=== PATIENT | female | born 1970 | race Caucasian/White ===

== ENCOUNTER → 2016-03-06 | Outpatient (CLI) | payer OTHER ==
[2016-03-06 10:54] LABS: MEAN CORPUSCULAR HEMOGLOBIN 28.7 pg (27.0-33.0); MEAN CORPUSCULAR HGB CONC 32.9 g/dl (32.0-36.5); MEAN CORPUSCULAR VOLUME 87.4 fl (80.0-96.0); RED CELL DISTRIBUTION WIDTH 13.5 % (11.5-14.5); RETIC HEMOGLOBIN CONTENT CHr 30.3 PG (24-36); RETICULOCYTE % ADVIA2120 1.7 % (0.5-1.5); WHITE BLOOD COUNT 8.2 K/mm3 (4.0-10.0)
[2016-03-06 11:27] LABS: ALBUMIN 3.7 GM/DL (3.2-5.2); ALBUMIN/GLOBULIN RATIO 1.06 (1.00-1.93); ALKALINE PHOSPHATASE 82 U/L (45-117); ALT/SGPT 34 U/L (12-78); ANION GAP 10 MEQ/L (8-16); AST/SGOT 20 U/L (15-37); BILIRUBIN,TOTAL 0.3 MG/DL (0.2-1.0); BLOOD UREA NITROGEN 12 MG/DL (7-18); CALCIUM LEVEL 8.6 MG/DL (8.5-10.1); CARBON DIOXIDE LEVEL 28 MEQ/L (21-32); CHLORIDE LEVEL 105 MEQ/L (98-107); CREATININE FOR GFR 0.77 MG/DL (0.55-1.02); GLOMERULAR FILTRATION RATE > 60.0 (>58); GLUCOSE, FASTING 108 MG/DL (70-105); POTASSIUM SERUM 4.2 MEQ/L (3.5-5.1); SODIUM LEVEL 143 MEQ/L (136-145); TOTAL PROTEIN 7.2 GM/DL (6.4-8.2)
--- NOTE | 2016-03-06 22:02 | REP ---
Clinical: Neck pain. Technique: AP, lateral, flexion/extension, open-mouth, bilateral oblique views. Findings: Alignment is maintained with mild reversal of normal lordosis. Moderate to advanced degenerative changes include anterior osteophytosis, endplate sclerosis and disc space narrowing primarily involving the C3-4 through C5-6 levels. No acute fracture / compression injury or subluxation. Open mouth view demonstrates normal C1-C2 articulation and odontoid process. Oblique views demonstrate patent neural foramen. Impression: Moderate to advanced focal degenerative changes involving C3-4, C4-5, C5-6. Signed by Bharat Otoole MD 03/06/2016 09:54 P
--- NOTE | 2016-03-06 22:03 | REP ---
Clinical: Pain . Technique: Internal rotation, external rotation, and Y view left shoulder Findings: No acute fracture or dislocation. The acromioclavicular and glenohumeral joints are intact. No periarticular calcifications or degenerative changes are appreciated. Sub acromial space is normal. Surrounding soft tissues are unremarkable. Impression: Age appropriate left shoulder radiographs. Signed by Bharat Otoole MD 03/06/2016 09:55 P
--- NOTE | 2016-03-06 22:04 | REP ---
Clinical: Shortness of breath . Comparison: 03/24/2013, 09/18/2013 . Technique: PA and lateral. Findings: The mediastinum and cardiac silhouette are normal. The lung butcher are clear and without acute consolidation, effusion, or pneumothorax. The skeletal structures are intact and normal. Impression: 1. No acute cardiopulmonary process. Signed by Bharat Otoole MD 03/06/2016 09:56 P
== END ==
LOC: M LAB 10:34
PROVIDERS: ATTEND Nurse Practitioner Family
DX: R06.02 Shortness of breath (principal); M25.519 Pain in unspecified shoulder; R53.81 Other malaise; E55.9 Vitamin D deficiency, unspecified; M12.832 Other specific arthropathies, not elsewhere classified, left wrist; R14.0 Abdominal distension (gaseous); M50.31 Other cervical disc degeneration, high cervical region; M50.322 Other cervical disc degeneration at C5-C6 level; M50.321 Other cervical disc degeneration at C4-C5 level

== ENCOUNTER → 2016-05-22 | Outpatient (CLI) | payer OTHER ==
--- NOTE | 2016-05-22 11:10 | REP ---
MAXILLOFACIAL CT WITHOUT CONTRAST: HISTORY: Chronic maxillary sinusitis. The left frontal sinus is hypoplastic. Minimal mucosal thickening is present in the maxillary sinuses. The remaining sinuses are clear. The ostiomeatal units are patent. The middle and inferior nasal turbinates are partially paradoxical. There is mild deviation of the nasal septum to the right. The nasal septum abuts the right middle nasal turbinate. The cribriform plate, medial lima of the orbits and optic canals are intact. The carotid canals form a segment of the posterolateral lima of the sphenoid sinus. IMPRESSION: Sinus mucosal thickening as described above. Signed by Jose Manuel Delgado MD 05/22/2016 11:18 A
== END ==
LOC: M RAD 09:39
PROVIDERS: ATTEND Otolaryngology
DX: J32.0 Chronic maxillary sinusitis (principal)

== ENCOUNTER → 2016-05-29 | Outpatient (CLI) | payer OTHER ==
[2016-05-29 12:18] LABS: BASO % 0.6 % (0.0-1.0); EOS # 0.2 K/mm3 (0.0-0.50); EOS % 2.3 % (0.0-3.0); LARGE UNSTAINED CELL # 0.2 K/mm3 (0.0-0.4); LARGE UNSTAINED CELL % 2.7 % (0.0-4.0); LYMPH # 2.6 K/mm3 (1.5-4.5); LYMPH % 28.9 % (24.0-44.0); MEAN CORPUSCULAR HEMOGLOBIN 28.9 pg (27.0-33.0); MEAN CORPUSCULAR HGB CONC 32.4 g/dl (32.0-36.5); MEAN CORPUSCULAR VOLUME 89.3 fl (80.0-96.0); MONO # 0.5 K/mm3 (0.0-0.8); MONO % 6.5 % (0.0-5.0); NEUTROPHILS # 4.9 K/mm3 (1.8-7.7); PLATELET COUNT, AUTOMATED 245 k/mm3 (150-450); RED CELL DISTRIBUTION WIDTH 13.6 % (11.5-14.5); WHITE BLOOD COUNT 8.3 K/mm3 (4.0-10.0)
--- NOTE | 2016-05-29 12:19 | REP ---
KUB, TWO VIEWS: HISTORY: Urinary history. Air is present in small and large intestine. There are no air fluid levels or dilated loops of intestine. There is no pneumoperitoneum. A mild amount of stool is present in the colon. IMPRESSION: Nonspecific bowel gas pattern. Signed by Jose Manuel Delgado MD 05/29/2016 12:21 P
[2016-05-29 12:55] LABS: ANION GAP 6 MEQ/L (8-16); BLOOD UREA NITROGEN 11 MG/DL (7-18); CALCIUM LEVEL 8.7 MG/DL (8.5-10.1); CARBON DIOXIDE LEVEL 30 MEQ/L (21-32); CHLORIDE LEVEL 107 MEQ/L (98-107); CREATININE FOR GFR 0.66 MG/DL (0.55-1.02); GLOMERULAR FILTRATION RATE > 60.0 (>58); GLUCOSE, FASTING 88 MG/DL (70-105); POTASSIUM SERUM 4.5 MEQ/L (3.5-5.1); SODIUM LEVEL 143 MEQ/L (136-145)
== END ==
LOC: M LAB 11:31
PROVIDERS: ATTEND Nurse Practitioner Family
DX: R35.0 Frequency of micturition (principal); K59.09 Other constipation; R31.29 Other microscopic hematuria; Z87.442 Personal history of urinary calculi

== ENCOUNTER 2016-08-11 09:39 | Emergency (ER) | payer OTHER ==
[~2016-08-11] VITALS: Ht 162.6 cm; Wt 86.2 kg
[2016-08-11] MEDS ORDERED: OMEP40CA2 PO (09:46)
[2016-08-11] MEDS ORDERED: LEVO150T7 PO (09:46)
[2016-08-11] MEDS ORDERED: ATOR1TAB21 PO (09:46)
[2016-08-11] MEDS ORDERED: CIPRODEX AS ×2 (10:46→10:50)
[2016-08-11 10:58] VITALS: BP 119/87
== END 2016-08-11 11:02 | disposition home or self-care (01) ==
LOC: M ED 10:10
DX: H60.92 Unspecified otitis externa, left ear (principal); E78.00 Pure hypercholesterolemia, unspecified; K21.9 Gastro-esophageal reflux disease without esophagitis; E03.9 Hypothyroidism, unspecified; Z79.899 Other long term (current) drug therapy; Z88.2 Allergy status to sulfonamides

== ENCOUNTER → 2016-09-09 | Outpatient (CLI) | payer OTHER ==
[~2016-09-09] MED LIST: ATOR1TAB21 PO; CIPRODEX AS; FLON1SPR; LEVO150T7 PO; OMEP40CA2 PO; VITA-112 PO
== END ==
LOC: M LAB 10:50
PROVIDERS: ATTEND Nurse Practitioner Family
DX: E78.5 Hyperlipidemia, unspecified (principal); E55.9 Vitamin D deficiency, unspecified

== ENCOUNTER → 2016-10-02 | Outpatient (CLI) | payer OTHER ==
[2016-10-02 10:18] LABS: MEAN CORPUSCULAR HEMOGLOBIN 29.4 pg (27.0-33.0); MEAN CORPUSCULAR HGB CONC 33.5 g/dl (32.0-36.5); MEAN CORPUSCULAR VOLUME 87.6 fl (80.0-96.0); RED CELL DISTRIBUTION WIDTH 13.7 % (11.5-14.5); WHITE BLOOD COUNT 8.8 K/mm3 (4.0-10.0)
[2016-10-02 10:55] LABS: FREE T4 1.18 NG/DL (0.76-1.46)
--- NOTE | 2016-10-03 01:35 | REP ---
Clinical: Hypothyroidism . Comparison: 03/06/2016 . Technique: PA and lateral. Findings: The mediastinum and cardiac silhouette are normal. The lung butcher are clear and without acute consolidation, effusion, or pneumothorax. The skeletal structures are intact and normal. Impression: 1. No acute cardiopulmonary process. Signed by Bharat Otoole MD 10/03/2016 01:26 A
--- NOTE | 2016-10-03 18:01 | ECGEPIP ---
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
== END ==
LOC: M LAB 09:47
PROVIDERS: ATTEND Nurse Practitioner Family
DX: R06.9 Unspecified abnormalities of breathing (principal)

== ENCOUNTER → 2016-10-08 | Outpatient (REF) | payer OTHER | LOC: M LAB REF 13:09 | PROVIDERS: ATTEND Nurse Practitioner Family | DX: Z12.4 Encounter for screening for malignant neoplasm of cervix (principal) ==

== ENCOUNTER 2016-10-10 13:25 | Outpatient (CLI) | payer OTHER ==
[~2016-10-10] VITALS: Ht 162.6 cm; Wt 83.9 kg
[2016-10-10] MEDS ORDERED: NS 1,000 ML IV ONE (13:30)
[2016-10-10] MEDS ORDERED: LIDOCAINE 2% INJ 100 MG/5 ML SDV (FOR ANES.) As Ordered ONE (17:02)
[2016-10-10] MEDS ORDERED: PROPOFOL 200 MG/20 ML VIAL As Ordered ONE (17:02)
--- NOTE | 2016-10-10 17:12 | ROOR ---
Patient Name: Enedina Hoyt Procedure Date: 10/10/2016 4:31 PM Date of : 1970 Age: 46 Room: [facility] Gender: Female Note Status: Finalized Procedure: Colonoscopy Indications: Change in bowel habits. Incomplete bowel movement, constipation. Providers: Shimon DURAN MD Referring MD: Claudette PRITCHARD NP Requesting Provider: Medicines: Monitored Anesthesia Care Complications: No immediate complications. Procedure: Pre-Anesthesia Assessment: - The heart rate, respiratory rate, oxygen saturations, blood pressure, adequacy of pulmonary ventilation, and response to care were monitored throughout the procedure. The Colonoscope was introduced through the anus and advanced to 4 cm into the ileum. The colonoscopy was performed without difficulty. The patient tolerated the procedure well. The quality of the bowel preparation was good. Findings: The perianal and digital rectal examinations were normal. A diminutive polyp was found in the splenic flexure. The polyp was sessile. The polyp was removed with a cold snare. Resection and retrieval were complete. A few small-mouthed diverticula were found in the sigmoid colon. Small Internal Hemorrhoids. The exam was otherwise without abnormality on direct and retroflexion views. Impression: - One diminutive polyp at the splenic flexure, removed with a cold snare. Resected and retrieved. - Minimal diverticulosis in the sigmoid colon. - Small Internal Hemorrhoids. - The examination was otherwise normal on direct and retroflexion views. Recommendation: - Miralax 1 capful (17 grams) in 8 ounces of water daily. - Telephone endoscopist for pathology results in 2 weeks. - If the pathology report reveals adenomatous tissue, then repeat the colonoscopy for surveillance in 5 years. Shimon Duran MD Shimon DURAN MD 10/10/2016 5:11:41 PM This report has been signed electronically. Number of Addenda: 0 Note Initiated On: 10/10/2016 4:31 PM Estimated Blood Loss: Estimated blood loss: none.
[2016-10-10 17:42] VITALS: BP 130/72
== END 2016-10-10 17:44 | disposition home or self-care (01) ==
LOC: M OPP 13:25
PROVIDERS: ATTEND Internal Medicine Gastroenterology
DX: R19.4 Change in bowel habit (principal); R15.0 Incomplete defecation; K59.00 Constipation, unspecified; D12.3 Benign neoplasm of transverse colon; K57.30 Diverticulosis of large intestine without perforation or abscess without bleeding; K64.8 Other hemorrhoids; R12 Heartburn; E03.9 Hypothyroidism, unspecified; E78.5 Hyperlipidemia, unspecified; F17.210 Nicotine dependence, cigarettes, uncomplicated; Z88.2 Allergy status to sulfonamides; Z79.899 Other long term (current) drug therapy; Z80.0 Family history of malignant neoplasm of digestive organs; Z80.43 Family history of malignant neoplasm of testis; Z80.1 Family history of malignant neoplasm of trachea, bronchus and lung

== ENCOUNTER → 2016-11-28 | Outpatient (REF) | payer OTHER, MEDICAID | LOC: M LAB REF 16:33 | PROVIDERS: ATTEND Nurse Practitioner Adult Health | DX: Z12.4 Encounter for screening for malignant neoplasm of cervix (principal); R35.0 Frequency of micturition ==

== ENCOUNTER → 2017-04-09 | Outpatient (CLI) | payer OTHER | LOC: M RAD 12:33 | DX: Z12.31 Encounter for screening mammogram for malignant neoplasm of breast (principal); Z92.29 Personal history of other drug therapy | CPT/HCPCS: 77067 ==

== ENCOUNTER → 2017-04-14 | Outpatient (CLI) | payer OTHER ==
[2017-04-14 09:24] LABS: BASO # 0.1 10^3/uL (0.0-0.2); BASO % 0.8 % (0.0-1.0); EOS # 0.2 10^3/uL (0.0-0.50); EOS % 2.3 % (0.0-3.0); HEMATOCRIT 43.8 % (36.0-47.0); HEMOGLOBIN 14.5 g/dl (12.0-16.0); IMMATURE GRANULOCYTE % 0.5 % (0-3.0); LYMPH # 2.6 10^3/uL (1.5-4.5); LYMPH % 30.4 % (24.0-44.0); MEAN CORPUSCULAR HEMOGLOBIN 28.5 pg (27.0-33.0); MEAN CORPUSCULAR HGB CONC 33.1 g/dl (32.0-36.5); MEAN CORPUSCULAR VOLUME 86.2 fl (80.0-96.0); MONO # 0.7 10^3/uL (0.0-0.8); MONO % 8.8 % (0.0-5.0); NEUTROPHILS # 4.8 10^3/uL (1.8-7.7); NEUTROPHILS % 57.2 % (36.0-66.0); PLATELET COUNT, AUTOMATED 246 10^3/uL (150-450); RED BLOOD COUNT 5.08 10^6/uL (4.00-5.40); RED CELL DISTRIBUTION WIDTH 15.2 % (11.5-14.5); WHITE BLOOD COUNT 8.4 10^3/uL (4.0-10.0)
[2017-04-14 09:46] LABS: ERYTHROCYTE SEDIMENTATION RATE 16 mm/hr (0-20)
[2017-04-14 09:56] LABS: ESTIMATED AVERAGE GLUCOSE 117 MG/DL (60-110); HEMOGLOBIN A1c 5.7 %
[2017-04-14 10:26] LABS: ALBUMIN 3.6 GM/DL (3.2-5.2); ALBUMIN/GLOBULIN RATIO 1.03 (1.00-1.93); ALKALINE PHOSPHATASE 77 U/L (45-117); ALT/SGPT 34 U/L (12-78); ANION GAP 7 MEQ/L (8-16); AST/SGOT 18 U/L (7-37); BILIRUBIN,TOTAL 0.3 MG/DL (0.2-1.0); BLOOD UREA NITROGEN 11 MG/DL (7-18); C REACTIVE PROTEIN QUANTITATIV 0.77 MG/DL (0.00-0.30); CALCIUM LEVEL 8.7 MG/DL (8.5-10.1); CARBON DIOXIDE LEVEL 27 MEQ/L (21-32); CHLORIDE LEVEL 108 MEQ/L (98-107); CHOLESTEROL LEVEL 213 MG/DL (<200); CREATININE FOR GFR 0.66 MG/DL (0.55-1.30); GLOMERULAR FILTRATION RATE > 60.0 (>58); GLUCOSE, FASTING 90 MG/DL (70-100); HDL CHOLESTEROL 46 MG/DL (>40); LDL CHOLESTEROL 144.6 MG/DL (<100); NON-HDL-C 167 MG/DL; POTASSIUM SERUM 4.3 MEQ/L (3.5-5.1); RHEUMATOID FACTOR QUANT < 10.0 IU/ML (0-15.0); SODIUM LEVEL 142 MEQ/L (136-145); THYROID STIMULATING HORMONE 0.457 uIU/ML (0.358-3.740); TOTAL PROTEIN 7.1 GM/DL (6.4-8.2); TRIGLYCERIDES LEVEL 112 MG/DL (<150)
[2017-04-14 10:38] LABS: TOTAL 25(OH) VITAMIN D 24.2 NG/ML (30.0-100.0)
[2017-04-16 00:06] LABS: ANTINUCLEAR ANTIBODIES DIRECT Negative (Negative)
[2017-04-16 00:06] LABS: CYCLIC CITRULLINATED PEPTIDE 4 units (0-19)
== END ==
LOC: M LAB 08:55
DX: M25.50 Pain in unspecified joint (principal)
CPT/HCPCS: 84443

== ENCOUNTER → 2017-10-23 | Outpatient (REF) | payer OTHER | LOC: M LAB REF 12:59 | DX: E03.9 Hypothyroidism, unspecified (principal) ==

== ENCOUNTER → 2018-04-27 | Outpatient (REF) | payer OTHER, MEDICAID ==
[2018-04-27 15:42] LABS: BASO # 0.1 10^3/uL (0.0-0.2); BASO % 0.6 % (0.0-1.0); EOS # 0.2 10^3/uL (0.0-0.50); EOS % 2.8 % (0.0-3.0); HEMOGLOBIN 15.3 g/dl (12.0-15.5); LYMPH # 2.4 10^3/uL (1.5-4.5); LYMPH % 30.5 % (24.0-44.0); MEAN CORPUSCULAR HEMOGLOBIN 28.8 pg (27.0-33.0); MEAN CORPUSCULAR HGB CONC 33.3 g/dl (32.0-36.5); MEAN CORPUSCULAR VOLUME 86.5 fl (80.0-96.0); MONO # 0.6 10^3/uL (0.0-0.8); MONO % 7.3 % (0.0-5.0); NEUTROPHILS # 4.7 10^3/uL (1.8-7.7); NEUTROPHILS % 58.5 % (36.0-66.0); PLATELET COUNT, AUTOMATED 297 10^3/uL (150-450); RED BLOOD COUNT 5.32 10^6/uL (4.00-5.40)
[2018-04-27 15:58] LABS: ALBUMIN 3.6 GM/DL (3.2-5.2); ALT/SGPT 33 U/L (12-78); BILIRUBIN,TOTAL 0.3 MG/DL (0.2-1.0); BLOOD UREA NITROGEN 11 MG/DL (7-18); CALCIUM LEVEL 8.6 MG/DL (8.5-10.1); CARBON DIOXIDE LEVEL 27 MEQ/L (21-32); CHLORIDE LEVEL 108 MEQ/L (98-107); CHOLESTEROL LEVEL 279 MG/DL (<200); CHOLESTEROL RISK RATIO 6.804 (<5); CREATININE FOR GFR 0.69 MG/DL (0.55-1.30); GLOMERULAR FILTRATION RATE > 60.0 (>58); GLUCOSE, FASTING 115 MG/DL (70-100); HDL CHOLESTEROL 41 MG/DL (>40); IRON (FE) 75 UG/DL (50-170); LDL CHOLESTEROL 192 MG/DL (<100); NON-HDL-C 238 MG/DL; SODIUM LEVEL 141 MEQ/L (136-145); THYROID STIMULATING HORMONE 0.647 uIU/ML (0.358-3.740); TOTAL 25(OH) VITAMIN D 27.7 NG/ML (30.0-100.0); TRIGLYCERIDES LEVEL 230 MG/DL (<150)
== END ==
LOC: M LAB REF 14:42
PROVIDERS: ATTEND Nurse Practitioner Adult Health
DX: Z13.9 Encounter for screening, unspecified (principal)

== ENCOUNTER 2018-07-11 08:55 | Emergency (ER) | payer MEDICAID, OTHER ==
[~2018-07-11] VITALS: Ht 162.6 cm; Wt 91.6 kg
[2018-07-11] MEDS ORDERED: ONDANSETRON 4 MG ORAL DISINTEGRATING TAB (Q0162 PER 1MG) PO ONE (09:30)
[2018-07-11 09:44] LABS: BASO # 0.1 10^3/uL (0.0-0.2); BASO % 0.7 % (0.0-1.0); EOS # 0.2 10^3/uL (0.0-0.50); EOS % 2.1 % (0.0-3.0); HEMATOCRIT 43.7 % (36.0-47.0); HEMOGLOBIN 14.2 g/dl (12.0-15.5); LYMPH # 2.2 10^3/uL (1.5-4.5); MEAN CORPUSCULAR HEMOGLOBIN 28.5 pg (27.0-33.0); MEAN CORPUSCULAR HGB CONC 32.5 g/dl (32.0-36.5); MEAN CORPUSCULAR VOLUME 87.8 fl (80.0-96.0); MONO # 0.8 10^3/uL (0.0-0.8); MONO % 9.5 % (0.0-5.0); NEUTROPHILS # 4.9 10^3/uL (1.8-7.7); NEUTROPHILS % 60.6 % (36.0-66.0); PLATELET COUNT, AUTOMATED 286 10^3/uL (150-450); RED BLOOD COUNT 4.98 10^6/uL (4.00-5.40)
[2018-07-11 09:50] VITALS: BP 144/83
--- NOTE | 2018-07-11 09:50 | REP ---
Head CT without contrast: History: Dizziness. Comparison study: No comparison. CT findings: Bone window settings demonstrate an intact bony calvarium. There is no evidence of skull fracture or incidental bony calvarial lesion. The visualized paranasal sinuses appear clear. No intraorbital abnormality is seen. On soft tissue window setting images; the lateral, third, and fourth ventricles are normal in size and position. Lackey-white differentiation pattern is normal above and below the tentorium. There are is no evidence of intracranial hemorrhage. No mass, edema, infarction, or midline shift is seen. No extra-axial fluid collection is appreciated. Impression: Negative noncontrast head CT. Electronically Signed by Bradley Joshua MD 07/11/2018 09:49 A
[2018-07-11 10:15] LABS: BLOOD UREA NITROGEN 11 MG/DL (7-18); CALCIUM LEVEL 8.5 MG/DL (8.5-10.1); CARBON DIOXIDE LEVEL 29 MEQ/L (21-32); CHLORIDE LEVEL 109 MEQ/L (98-107); CREATININE FOR GFR 0.65 MG/DL (0.55-1.30); GLOMERULAR FILTRATION RATE > 60.0 (>58); GLUCOSE, FASTING 98 MG/DL (70-100); POTASSIUM SERUM 4.2 MEQ/L (3.5-5.1); SODIUM LEVEL 143 MEQ/L (136-145); THYROID STIMULATING HORMONE 0.181 uIU/ML (0.358-3.740)
[2018-07-11] MEDS ORDERED: ONDA4TAB6 PO (10:47)
[2018-07-11] MEDS ORDERED: MECL-68 PO (10:47)
== END 2018-07-11 11:01 | disposition home or self-care (01) ==
LOC: M ED 08:55
DX: H65.05 Acute serous otitis media, recurrent, left ear (principal); H81.10 Benign paroxysmal vertigo, unspecified ear; K21.9 Gastro-esophageal reflux disease without esophagitis; E03.9 Hypothyroidism, unspecified; E78.00 Pure hypercholesterolemia, unspecified; F17.210 Nicotine dependence, cigarettes, uncomplicated; Z88.2 Allergy status to sulfonamides; Z79.899 Other long term (current) drug therapy
CPT/HCPCS: 36415; 70450; 80048; 84443; 85025; 99284; Q0162

== ENCOUNTER → 2018-12-15 | Outpatient (REF) | payer OTHER ==
[~2018-12-15] MED LIST changes: +MECL-68 PO; +ONDA4TAB6 PO
[2018-12-15 18:19] LABS: ALBUMIN 3.6 GM/DL (3.2-5.2); ALT/SGPT 36 U/L (12-78); BILIRUBIN,TOTAL 0.4 MG/DL (0.2-1.0); BLOOD UREA NITROGEN 8 MG/DL (7-18); CALCIUM LEVEL 9.2 MG/DL (8.5-10.1); CARBON DIOXIDE LEVEL 27 MEQ/L (21-32); CHLORIDE LEVEL 107 MEQ/L (98-107); CHOLESTEROL LEVEL 199 MG/DL (<200); CHOLESTEROL RISK RATIO 4.326 (<5); CREATININE FOR GFR 0.71 MG/DL (0.55-1.30); GLOMERULAR FILTRATION RATE > 60.0 (>58); GLUCOSE, FASTING 100 MG/DL (70-100); HDL CHOLESTEROL 46 MG/DL (>40); LDL CHOLESTEROL 119 MG/DL (<100); NON-HDL-C 153 MG/DL; POTASSIUM SERUM 4.2 MEQ/L (3.5-5.1); SODIUM LEVEL 140 MEQ/L (136-145); THYROID STIMULATING HORMONE 0.621 uIU/ML (0.358-3.740); TOTAL 25(OH) VITAMIN D 29.8 NG/ML (30.0-100.0); TRIGLYCERIDES LEVEL 172 MG/DL (<150)
[2018-12-15 18:23] LABS: HEMOGLOBIN A1c 5.9 %
== END ==
LOC: M LAB REF 16:54
PROVIDERS: ATTEND Nurse Practitioner Adult Health
DX: Z13.9 Encounter for screening, unspecified (principal)

== ENCOUNTER → 2018-12-22 | Outpatient (CLI) | payer OTHER ==
[~2018-12-22] MED LIST changes: -OMEP40CA2 PO; +OMEP40CA97 PO; +PROHANCE 279.3MG/ML 15ML VIAL (A9576) As Ordered ONE; +PROHANCE 279.3MG/ML 5ML VIAL (A9576) As Ordered ONE
--- NOTE | 2018-12-22 15:10 | REP ---
MRI brain/IACs: 12/22/2018. Indication: Center narrowing loss. Comparison: None. Technique: Multiplanar short and long TR sequences of the brain/IACs were performed including post-gadolinium images. 17 ml IV ProHance were administered. Findings: There are no areas of restricted diffusion. There is no evidence of mass effect or hydrocephalous. Partially empty sella is present. There are a few punctate foci of elevated T2 prolongation within the white matter of the cerebral hemispheres most pronounced within the right frontal lobe. The large intracranial flow voids are present and unremarkable. There are no areas of pathologic gadolinium enhancement. The membranous labyrinth are unremarkable. No cerebellopontine/medullary abnormalities are present. The IACs appear normal. Tiny right mastoid effusion is present. Impression: Unremarkable IACs. 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 Nonspecific partially empty sella. Electronically Signed by Danis Roblero DO 12/22/2018 03:02 P
== END ==
LOC: M RAD 13:06
PROVIDERS: ATTEND Otolaryngology
DX: H90.3 Sensorineural hearing loss, bilateral (principal)
CPT/HCPCS: 70553; A9576

== ENCOUNTER 2018-12-24 06:55 | Day surgery (SDC) | payer OTHER ==
[~2018-12-24] VITALS: Ht 162.6 cm; Wt 89.4 kg
[~2018-12-24 06:55] MED LIST changes: -PROHANCE 279.3MG/ML 15ML VIAL (A9576) As Ordered ONE; -PROHANCE 279.3MG/ML 5ML VIAL (A9576) As Ordered ONE
[2018-12-24] MEDS ORDERED: CIPRODEX OTIC SUSP 7.5ML As Ordered ONE (07:10)
[2018-12-24] MEDS ORDERED: dexameTHASONE 4 MG/ML 1ML VIAL (J1100) As Ordered ONE (08:29)
[2018-12-24] MEDS ORDERED: LIDOCAINE 2% INJ 100 MG/5 ML SDV (FOR ANES.) As Ordered ONE (08:29)
[2018-12-24] MEDS ORDERED: MIDAZOLAM INJ 2 MG/2 ML VIAL (J2250) As Ordered ONE (08:29)
[2018-12-24] MEDS ORDERED: fentaNYL 100 MCG/2 ML INJECTION (J3010) As Ordered ONE (08:29)
[2018-12-24] MEDS ORDERED: ONDANSETRON 4MG/2ML VIAL (J2405) As Ordered ONE (08:29)
[2018-12-24] MEDS ORDERED: PROPOFOL 200 MG/20 ML VIAL As Ordered ONE (08:29)
[2018-12-24] MEDS ORDERED: LR 1,000 ML IV SCH (08:45)
[2018-12-24] MEDS ORDERED: PERCOCET 5MG/325MG TAB PO PRN (08:45)
[2018-12-24] MEDS ORDERED: ONDANSETRON 4MG/2ML VIAL (J2405) IV PRN (08:45)
[2018-12-24] MEDS ORDERED: IBUPROFEN 600 MG TAB As Ordered ONE (08:49)
[2018-12-24] MEDS ORDERED: IBUPROFEN 600 MG TAB PO PRN (09:00)
[2018-12-24] MEDS ORDERED: IBUPROFEN 600 MG TAB PO ONE (09:00)
[2018-12-24 09:35] VITALS: BP 109/61
--- NOTE | 2018-12-29 15:25 | RO ---
DATE OF PROCEDURE: 12/24/2018 PREPROCEDURE DIAGNOSIS: Eustachian tube dysfunction. POSTPROCEDURE DIAGNOSIS: Eustachian tube dysfunction. PROCEDURE: Bilateral tympanostomy. SURGEON: Marv Alex MD [employer]KER: ANESTHESIA: General. INTRAOPERATIVE FINDINGS: Bilateral tympanosclerosis. CLINICAL PREAMBLE: This 48-year-old woman presented to the office with a history of chronic ear fullness. She was not responding to medical treatment, including nasal steroids. Physical examination revealed intact, retracted and sclerotic tympanic membranes. Management options, including bilateral tympanostomy have been discussed. The patient understood and consented to the procedure. DESCRIPTION OF PROCEDURE: Patient was identified in preholding and brought to the operating room in stable condition. In the supine position on the operating room table, the patient received general anesthesia followed by mask ventilation. The patient's head was turned to the left side to expose the right ear. Ear speculum was inserted and cerumen was debrided. The right tympanic membrane was visualized under binocular magnification under an operating microscope and was found to be intact and mildly retracted. Myringotomy incision was made over the anterior-inferior quadrant of tympanic membrane. The right middle ear cleft was then suctioned clear. A 7 mm straight shank tympanostomy tube was inserted. Ciprodex drops were instilled, and a cotton ball was used to occlude the ear canal. The same procedure was carried out to place the same type of tympanostomy tube to the left ear as well. At the end of the end of the procedure, sponge and needle counts were correct. No complications were encountered. Estimated blood loss was nil. General anesthesia was reversed, and patient was awakened and taken to recovery room in stable condition.
== END 2018-12-24 09:47 | disposition home or self-care (01) ==
LOC: M SDC 06:55
PROVIDERS: ATTEND Otolaryngology
DX: H69.93 Unspecified Eustachian tube disorder, bilateral (principal); H74.03 Tympanosclerosis, bilateral; E03.9 Hypothyroidism, unspecified; E78.5 Hyperlipidemia, unspecified; K21.9 Gastro-esophageal reflux disease without esophagitis; F17.218 Nicotine dependence, cigarettes, with other nicotine-induced disorders; Z88.2 Allergy status to sulfonamides
CPT/HCPCS: 69436; J1100; J2250; J2405; J3010

== ENCOUNTER → 2019-06-29 | Outpatient (REF) | payer SELFPAY ==
[~2019-06-29] MED LIST changes: -MECL-68 PO; +MECL1TAB31 PO
[2019-06-29 17:34] LABS: BASO # 0.1 10^3/uL (0.0-0.2); BASO % 0.7 % (0.0-1.0); EOS # 0.2 10^3/uL (0.0-0.5); EOS % 1.8 % (0.0-3.0); HEMOGLOBIN 15.1 g/dl (12.0-15.5); LYMPH % 23.9 % (24.0-44.0); MEAN CORPUSCULAR HEMOGLOBIN 28.7 pg (27.0-33.0); MEAN CORPUSCULAR HGB CONC 32.8 g/dl (32.0-36.5); MEAN CORPUSCULAR VOLUME 87.3 fl (80.0-96.0); MONO % 8.3 % (0.0-5.0); NEUTROPHILS # 8.1 10^3/uL (1.5-8.5); PLATELET COUNT, AUTOMATED 321 10^3/uL (150-450); RED BLOOD COUNT 5.27 10^6/uL (4.00-5.40); WHITE BLOOD COUNT 12.5 10^3/uL (4.0-10.0)
[2019-06-29 17:48] LABS: APPEARANCE, URINE CLEAR (CLEAR); BACTERIA, URINE AUTO NEGATIVE (NEGATIVE); BILIRUBIN, URINE AUTO NEGATIVE (NEGATIVE); BLOOD, URINE BLOOD 2+ (NEGATIVE); COLOR, URINE STRAW (YELLOW); GLUCOSE, URINE (UA) AUTO NEGATIVE (NEGATIVE); KETONE, URINE AUTO NEGATIVE (NEGATIVE); LEUKOCYTE ESTERASE, URINE AUTO 2+ (NEGATIVE); NITRITE, URINE AUTO NEGATIVE (NEGATIVE); PROTEIN, URINE AUTO NEGATIVE (NEGATIVE); RBC, URINE AUTO 17 /HPF (0-3); SQUAMOUS EPITHELIAL CELL UR AU 1 /HPF (0-6); UROBILINOGEN, URINE AUTO 0.2 mg/dL (0.0-2.0); WBC, URINE AUTO 65 /HPF (0-3)
[2019-06-29 18:03] LABS: ALBUMIN 3.4 GM/DL (3.2-5.2); ALT/SGPT 34 U/L (12-78); BILIRUBIN,TOTAL 0.2 MG/DL (0.2-1.0); BLOOD UREA NITROGEN 12 MG/DL (7-18); CALCIUM LEVEL 8.6 MG/DL (8.5-10.1); CARBON DIOXIDE LEVEL 27 MEQ/L (21-32); CHLORIDE LEVEL 108 MEQ/L (98-107); GLOMERULAR FILTRATION RATE > 60.0 (>58); GLUCOSE, FASTING 107 MG/DL (70-100); POTASSIUM SERUM 3.9 MEQ/L (3.5-5.1); SODIUM LEVEL 141 MEQ/L (136-145)
== END ==
LOC: M LAB REF 17:10
PROVIDERS: ATTEND Nurse Practitioner Family
DX: N39.0 Urinary tract infection, site not specified (principal); R30.0 Dysuria

== ENCOUNTER → 2020-03-08 | Outpatient (REF) | payer SELFPAY | LOC: M LAB REF 12:46 | PROVIDERS: ATTEND Physician Assistant | DX: R30.9 Painful micturition, unspecified (principal) ==

== ENCOUNTER → 2020-03-20 | Outpatient (REF) | payer OTHER ==
[~2020-03-20] MED LIST changes: +CIPR7.5D5 AS; -CIPRODEX AS
[2020-03-20 18:07] LABS: BASO # 0.1 10^3/uL (0.0-0.2); BASO % 0.7 % (0.0-1.0); EOS # 0.2 10^3/uL (0.0-0.5); HEMATOCRIT 47.1 % (36.0-47.0); LYMPH # 2.8 10^3/uL (1.5-5.0); LYMPH % 28.9 % (24.0-44.0); MEAN CORPUSCULAR HEMOGLOBIN 28.3 pg (27.0-33.0); MEAN CORPUSCULAR HGB CONC 31.8 g/dl (32.0-36.5); MEAN CORPUSCULAR VOLUME 88.9 fl (80.0-96.0); MONO # 0.7 10^3/uL (0.0-0.8); MONO % 7.5 % (0.0-5.0); NEUTROPHILS # 5.9 10^3/uL (1.5-8.5); NEUTROPHILS % 60.6 % (36.0-66.0); PLATELET COUNT, AUTOMATED 295 10^3/uL (150-450); WHITE BLOOD COUNT 9.8 10^3/uL (4.0-10.0)
[2020-03-20 18:21] LABS: HEMOGLOBIN A1c 5.6 %
[2020-03-20 18:44] LABS: ALBUMIN 3.6 GM/DL (3.2-5.2); ALT/SGPT 35 U/L (12-78); BILIRUBIN,TOTAL 0.3 MG/DL (0.2-1.0); BLOOD UREA NITROGEN 11 MG/DL (7-18); CALCIUM LEVEL 9.1 MG/DL (8.5-10.1); CARBON DIOXIDE LEVEL 29 MEQ/L (21-32); CHLORIDE LEVEL 107 MEQ/L (98-107); CHOLESTEROL LEVEL 215 MG/DL (<200); CHOLESTEROL RISK RATIO 4.673 (<5); CREATININE FOR GFR 0.72 MG/DL (0.55-1.30); FREE T4 1.29 NG/DL (0.76-1.46); GLOMERULAR FILTRATION RATE > 60.0 (>58); GLUCOSE, FASTING 90 MG/DL (70-100); HDL CHOLESTEROL 46 MG/DL (>40); LDL CHOLESTEROL 131 MG/DL (<100); NON-HDL-C 169 MG/DL; POTASSIUM SERUM 4.1 MEQ/L (3.5-5.1); SODIUM LEVEL 140 MEQ/L (136-145); THYROID STIMULATING HORMONE 0.209 uIU/ML (0.358-3.740); TOTAL PROTEIN 7.1 GM/DL (6.4-8.2); TRIGLYCERIDES LEVEL 192 MG/DL (<150)
== END ==
LOC: M LAB REF 16:42
PROVIDERS: ATTEND Physician Assistant
DX: E03.9 Hypothyroidism, unspecified (principal); R03.0 Elevated blood-pressure reading, without diagnosis of hypertension; R73.03 Prediabetes

== ENCOUNTER → 2020-11-13 | Outpatient (CLI) | payer OTHER ==
[~2020-11-13] MED LIST changes: +OMEP40CA4 PO; -OMEP40CA97 PO
== END ==
LOC: M WHC 10:26
PROVIDERS: ATTEND Physician Assistant
DX: Z12.31 Encounter for screening mammogram for malignant neoplasm of breast (principal)

== ENCOUNTER → 2021-05-14 | Outpatient (REF) | payer OTHER ==
[2021-05-14 12:46] LABS: APPEARANCE, URINE HAZY (CLEAR); BACTERIA, URINE AUTO 1+ (NEGATIVE); BILIRUBIN, URINE AUTO NEGATIVE (NEGATIVE); BLOOD, URINE BLOOD 2+ (NEGATIVE); COLOR, URINE YELLOW (YELLOW); GLUCOSE, URINE (UA) AUTO NEGATIVE (NEGATIVE); KETONE, URINE AUTO NEGATIVE (NEGATIVE); LEUKOCYTE ESTERASE, URINE AUTO 2+ (NEGATIVE); MUCUS, URINE SMALL (NEGATIVE); NITRITE, URINE AUTO NEGATIVE (NEGATIVE); PROTEIN, URINE AUTO 2+ mg/dL (NEGATIVE); RBC, URINE AUTO 76 /HPF (0-3); SPECIFIC GRAVITY URINE AUTO 1.009 (1.002-1.035); SQUAMOUS EPITHELIAL CELL UR AU 1 /HPF (0-6); UROBILINOGEN, URINE AUTO 0.2 mg/dL (0.0-2.0); WBC, URINE AUTO 116 /HPF (0-3)
== END ==
LOC: M LAB REF 12:10
PROVIDERS: ATTEND Physician Assistant Medical
DX: R30.0 Dysuria (principal)

== ENCOUNTER → 2021-08-31 | Outpatient (REF) | payer OTHER ==
[2021-08-31 17:15] LABS: APPEARANCE, URINE CLOUDY (CLEAR); BACTERIA, URINE AUTO 3+ (NEGATIVE); BILIRUBIN, URINE AUTO NEGATIVE (NEGATIVE); BLOOD, URINE BLOOD 3+ (NEGATIVE); COLOR, URINE AMBER (YELLOW); GLUCOSE, URINE (UA) AUTO NEGATIVE (NEGATIVE); KETONE, URINE AUTO NEGATIVE (NEGATIVE); LEUKOCYTE ESTERASE, URINE AUTO 3+ (NEGATIVE); NITRITE, URINE AUTO NEGATIVE (NEGATIVE); PROTEIN, URINE AUTO 3+ mg/dL (NEGATIVE); RBC, URINE AUTO TNTC /HPF (0-3); SPECIFIC GRAVITY URINE AUTO 1.017 (1.002-1.035); SQUAMOUS EPITHELIAL CELL UR AU 0 /HPF (0-6); UROBILINOGEN, URINE AUTO 0.2 mg/dL (0.0-2.0); WBC, URINE AUTO TNTC /HPF (0-3)
== END ==
LOC: M LAB REF 16:58
PROVIDERS: ATTEND Physician Assistant
DX: N39.0 Urinary tract infection, site not specified (principal)

== ENCOUNTER → 2022-07-22 | Outpatient (REF) | payer OTHER ==
[2022-07-22 12:39] LABS: HEMOGLOBIN A1c 5.5 % (4.0-6.0)
[2022-07-22 12:50] LABS: BLOOD UREA NITROGEN 11 MG/DL (9-23); CALCIUM LEVEL 8.9 MG/DL (8.5-10.1); CARBON DIOXIDE LEVEL 28 MMOL/L (20-31); CHLORIDE LEVEL 105 MMOL/L (98-107); CHOLESTEROL LEVEL 195 MG/DL (<200); CHOLESTEROL RISK RATIO 4.16 (<5); CREATININE FOR GFR 0.71 MG/DL (0.55-1.30); GLOMERULAR FILTRATION RATE > 60.0 (>51); GLUCOSE, FASTING 90 MG/DL (60-100); HDL CHOLESTEROL 46.8 MG/DL (>40); LDL CHOLESTEROL 110.6 MG/DL (<100); NON-HDL-C 148.2 MG/DL; POTASSIUM SERUM 4.5 MMOL/L (3.5-5.1); SODIUM LEVEL 142 MMOL/L (136-145); TRIGLYCERIDES LEVEL 188 MG/DL (<150)
[2022-07-22 12:51] LABS: THYROID STIMULATING HORMONE 2.044 uIU/ML (0.55-4.78)
== END ==
LOC: M LAB REF 11:10
PROVIDERS: ATTEND Pediatrics
DX: E78.5 Hyperlipidemia, unspecified (principal); I10 Essential (primary) hypertension; R73.03 Prediabetes; E03.9 Hypothyroidism, unspecified

== ENCOUNTER → 2024-12-28 | Outpatient (REF) | payer OTHER ==
[~2024-12-28] MED LIST changes: +MECL-209 PO; -MECL1TAB31 PO; +ONDA-282 PO; -ONDA4TAB6 PO
[2024-12-28 13:02] LABS: ALT/SGPT 26 U/L (7.0-40); AST/SGOT 22 U/L (<34); BASO # 0.1 10^3/uL (0.0-0.2); BASO % 0.8 % (0.0-1.0); CALCIUM LEVEL 10.3 MG/DL (8.5-10.1); CARBON DIOXIDE LEVEL 30 MMOL/L (20-31); CHLORIDE LEVEL 107 MMOL/L (98-107); CREATININE FOR GFR 0.68 MG/DL (0.55-1.30); EOS # 0.2 10^3/uL (0.0-0.5); EOS % 1.8 % (0.0-3.0); GLOMERULAR FILTRATION RATE > 90.0 (>51); LYMPH # 2.5 10^3/uL (1.5-5.0); LYMPH % 25.6 % (24.0-44.0); MONO # 0.7 10^3/uL (0.0-0.8); MONO % 7.6 % (2.0-8.0); NEUTROPHILS # 6.1 10^3/uL (1.5-8.5); NEUTROPHILS % 63.8 % (36.0-66.0); PLATELET COUNT, AUTOMATED 273 10^3/uL (150-450); POTASSIUM SERUM 4.2 MMOL/L (3.5-5.1); SODIUM LEVEL 143 MMOL/L (136-145)
[2024-12-28 13:06] LABS: TOTAL 25(OH) VITAMIN D 20.0 NG/ML (20.0-100.0)
[2024-12-28 13:15] LABS: CREATININE, URINE 45.2 MG/DL; MALB URINE SIEMENS < 3.0 MG/L
[2024-12-28 13:28] LABS: ESTIMATED AVERAGE GLUCOSE 111.0 MG/DL (60-110)
== END ==
LOC: M LAB REF 11:49
PROVIDERS: ATTEND Pediatrics
DX: I10 Essential (primary) hypertension (principal)